=== PATIENT | female | born 1980 | race Caucasian/White ===

== ENCOUNTER 2017-06-13 20:52 | Emergency (ER) | payer OTHER ==
[~2017-06-13] VITALS: Ht 177.8 cm; Wt 115.8 kg
[2017-06-13 21:05] VITALS: BP 138/68; PULSE 109; RESP 16; TEMP 98.7; O2SAT 99
[2017-06-13] MEDS ORDERED: CETI10 PO (21:42)
[2017-06-13] MEDS ORDERED: IMIT100T PO (21:42)
[2017-06-13] MEDS ORDERED: ARIP1TAB5 PO (21:42)
[2017-06-13] MEDS ORDERED: PRAZ1CAP PO (21:42)
[2017-06-13] MEDS ORDERED: OMEP20TA PO (21:42)
[2017-06-13] MEDS ORDERED: CLAR10CA3 PO (21:42)
[2017-06-13] MEDS ORDERED: LAMO200T PO (21:42)
[2017-06-13] MEDS ORDERED: HYDR50TA94 PO (21:42)
[2017-06-13] MEDS ORDERED: ZOFR4TAB3 SL (22:21)
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
[2017-06-13] MEDS ORDERED: ONDANSETRON ODT 4 MG TAB PO ONE (22:30)
[2017-06-13 22:49] VITALS: BP 119/61
== END 2017-06-13 22:56 | disposition home or self-care (01) ==
LOC: PHEFT 20:52
DX: M79.1 Myalgia (principal); T14.8 Other injury of unspecified body region; V53.6XXA Passenger in pick-up truck or van injured in collision with car, pick-up truck or van in traffic accident, initial encounter; Y93.89 Activity, other specified; Y92.411 Interstate highway as the place of occurrence of the external cause; F17.210 Nicotine dependence, cigarettes, uncomplicated
CPT/HCPCS: 99283